=== PATIENT | male | born 1985 | race American Indian/Alaskan Native ===

== ENCOUNTER 2016-11-13 20:27 | Emergency (ER) | payer SELFPAY ==
[2016-11-13 20:53] VITALS: BP 122/76
== END 2016-11-13 22:38 | disposition left against medical advice (07) ==
LOC: ED 20:27
DX: M54.5 Low back pain (principal); Z53.21 Procedure and treatment not carried out due to patient leaving prior to being seen by health care provider

== ENCOUNTER 2017-10-11 23:16 | Emergency (ER) | payer OTHER ==
[2017-10-12 01:10] VITALS: BP 130/90
[2017-10-12] MEDS ORDERED: TYLENOL ONE (03:11)
[2017-10-12] MEDS ORDERED: TYLENOL PO ONE (03:11)
--- NOTE | 2017-10-12 06:18 | Emergency Department Report ---
ED ENT HPI - General Chief complaint: Sore Throat Stated complaint: EAR PAIN,SORE THROAT Time Seen by Provider: 10/12/17 06:03 Source: patient Mode of arrival: Ambulatory Limitations: No Limitations - History of Present Illness Initial comments: pt is a 31 y/o aam who presents for throat and ear pain with noc fever x 1 week , pt has not taken temperature at home states he has definitely had fever all week, associated symptoms include dysphagia. MD complaint: sore throat, ear pain, difficulty swallowing Onset/Timin -: week(s) Location: throat Severity: moderate Severity scale (0 -10): 5 Quality: burning, sharp Consistency: intermittent Improves with: none Worsens with: swallowing Associated Symptoms: fever, pain with swallowing, sore throat - Related Data Previous Rx's Medication Instructions Recorded Last Taken Type Amoxicillin 500 mg PO TID #30 capsule 10/12/17 Unknown Rx Ibuprofen 800 mg PO TID PRN #30 tablet 10/12/17 Unknown Rx Allergies Allergy/AdvReac Type Severity Reaction Status Date / Time No Known Allergies Allergy Verified 03/25/16 12:19 ED Dental HPI - General Chief complaint: Sore Throat Stated complaint: EAR PAIN,SORE THROAT Time Seen by Provider: 10/12/17 06:03 Source: patient Mode of arrival: Ambulatory Limitations: No Limitations - Related Data Previous Rx's Medication Instructions Recorded Last Taken Type Amoxicillin 500 mg PO TID #30 capsule 10/12/17 Unknown Rx Ibuprofen 800 mg PO TID PRN #30 tablet 10/12/17 Unknown Rx Allergies Allergy/AdvReac Type Severity Reaction Status Date / Time No Known Allergies Allergy Verified 03/25/16 12:19 ED Review of Systems ROS: Stated complaint: EAR PAIN,SORE THROAT Other details as noted in HPI Constitutional: denies: chills, fever Eyes: denies: eye pain, eye discharge, vision change ENT: ear pain, throat pain Respiratory: denies: cough, shortness of breath, wheezing Cardiovascular: denies: chest pain, palpitations Endocrine: no symptoms reported Gastrointestinal: denies: abdominal pain, nausea, diarrhea Genitourinary: denies: urgency, dysuria Musculoskeletal: denies: back pain, joint swelling, arthralgia Skin: denies: rash, lesions Neurological: denies: headache, weakness, paresthesias Psychiatric: denies: anxiety, depression Hematological/Lymphatic: denies: easy bleeding, easy bruising ED Past Medical Hx - Past Medical History Additional medical history: anxiety, clastophobic - Surgical History Additional Surgical History: RIGHT hand repair - Social History Smoking Status: Current Every Day Smoker Substance Use Type: Marijuana - Medications Home Medications: Home Medications Medication Instructions Recorded Confirmed Last Taken Type Amoxicillin 500 mg PO TID #30 capsule 10/12/17 Unknown Rx Ibuprofen 800 mg PO TID PRN #30 tablet 10/12/17 Unknown Rx ED Physical Exam - General Limitations: No Limitations General appearance: alert, in no apparent distress - Head Head exam: Present: atraumatic, normocephalic, normal inspection - Eye Eye exam: Present: normal appearance, PERRL, EOMI Pupils: Present: normal accommodation - Expanded ENT Exam Expanded TM/Canal exam: Erythema: Right TM, Left TM, Canal Tenderness: Right TM, Left TM Mouth exam: Present: tongue normal. Absent: trismus, muffled voice, tongue elevation, laceration Throat exam: Positive: tonsillar erythema, tonsillomegaly. Negative: tonsillar exudate, R peritonsillar mass, L peritonsillar mass - Neck Neck exam: Present: normal inspection, full ROM. Absent: tenderness, lymphadenopathy, thyromegaly - Respiratory Respiratory exam: Present: normal lung sounds bilaterally. Absent: respiratory distress, wheezes, stridor, chest wall tenderness - Cardiovascular Cardiovascular Exam: Present: regular rate, normal rhythm. Absent: systolic murmur, diastolic murmur, rubs, gallop - GI/Abdominal GI/Abdominal exam: Present: soft, normal bowel sounds - Rectal Rectal exam: Present: deferred - Extremities Exam Extremities exam: Present: normal inspection, full ROM - Back Exam Back exam: Present: normal inspection, full ROM. Absent: tenderness - Neurological Exam Neurological exam: Present: alert, oriented X3, CN II-XII intact, normal gait, reflexes normal - Psychiatric Psychiatric exam: Present: normal affect, normal mood - Skin Skin exam: Present: warm, dry, intact, normal color. Absent: rash ED Course Vital Signs 10/12/17 01:07 Temperature 97.9 F Pulse Rate 67 Respiratory 18 Rate Blood Pressure 130/90 O2 Sat by Pulse 97 Oximetry ED Medical Decision Making - Medical Decision Making pt presents for sore throat dysphagia, fever noc, bilat ear pain x1 week exam: bilat tm erythema pain with movement nose; patent no polyps no obstruction , pharynx: moderate erythema no lesion no exudate not tonsilarmagelly uvula mildline no stridor, lungs clear bilat no wheezing, rapid strep negative, plan: tx for AOM, pharyngitis, dc to self with amoxicillin & ibuprofen pt will follow up with primary care in 2-3 days pt verbalized agreement and understanding of same. Critical care attestation.: If time is entered above; I have spent that time in minutes in the direct care of this critically ill patient, excluding procedure time. ED Disposition Clinical Impression: AOM (acute otitis media) Qualifiers: Otitis media type: serous Laterality: bilateral Recurrence: not specified as recurrent Qualified Code(s): H65.03 - Acute serous otitis media, bilateral Pharyngitis Qualifiers: Pharyngitis/tonsillitis etiology: unspecified etiology Qualified Code(s): J02.9 - Acute pharyngitis, unspecified Disposition: DC-01 TO HOME OR SELFCARE Is pt being admited?: No Does the pt Need Aspirin: No Condition: Good Instructions: Pharyngitis (ED), Otitis Media (ED), Upper Respiratory Infection (ED) Prescriptions: Amoxicillin 500 mg PO TID #30 capsule Ibuprofen 800 mg PO TID PRN #30 tablet PRN Reason: pain and fever Referrals: PRIMARY MD SAMANTHA [Primary Care Provider] - 3-5 Days MELY ALDRIDGE MD [Staff Physician] - 3-5 Days Forms: Work/School Release Form(ED) Time of Disposition: 06:25
== END 2017-10-12 06:40 | disposition home or self-care (01) ==
LOC: ED 23:16
DX: J02.9 Acute pharyngitis, unspecified (principal); H65.03 Acute serous otitis media, bilateral; F12.10 Cannabis abuse, uncomplicated; F17.200 Nicotine dependence, unspecified, uncomplicated
CPT/HCPCS: 87116; 87430; 99282

== ENCOUNTER 2021-05-04 19:19 | Emergency (ER) | payer MEDICAID ==
[2021-05-04 19:43] VITALS: BP 123/76
== END 2021-05-04 23:00 | disposition left against medical advice (07) ==
LOC: ED 19:19
DX: R42 Dizziness and giddiness (principal); Z53.21 Procedure and treatment not carried out due to patient leaving prior to being seen by health care provider